=== PATIENT | male | born 1995 | race Caucasian/White ===

== ENCOUNTER 2017-05-03 10:00 | Emergency (ER) | payer OTHER ==
[~2017-05-03] VITALS: Ht 182.9 cm; Wt 63.6 kg
[2017-05-03 10:03] VITALS: BP 136/76; PULSE 81; TEMP 98.1
[2017-05-03] MEDS ORDERED: TRIAM OI 15 0.025 TOP (10:06)
[2017-05-03] MEDS ORDERED: BACTROBAN 22GM22 GM TP (10:39)
[2017-05-03] MEDS ORDERED: CLEOCIN HCL300 MG PO (10:39)
== END 2017-05-03 10:48 | disposition home or self-care (01) ==
LOC: COL.ER 10:00
DX: L73.9 Follicular disorder, unspecified (principal)